=== PATIENT | male | born 1975 | race Caucasian/White ===

== ENCOUNTER 2020-11-08 09:43 | Day surgery (SDC) | payer MEDICARE, OTHER ==
[~2020-11-08] VITALS: Ht 170.2 cm; Wt 82.9 kg
[~2020-11-08 09:43] MED LIST: ALBU90OI INH; BUPR150ER; BUPR150ER PO; LAMO100 PO; PANT40 PO; QUET300 PO; RANI150; Seroquel300 MG PO
[2020-11-08] MEDS ORDERED: TESTOSTERONE ENANTHATE (10:04)
== END 2020-11-08 13:03 | disposition home or self-care (01) ==
LOC: ORSCSDS 09:43
PROVIDERS: Student in an Organized Health Care Education/Training Program
PROC: 0DBL8ZX Excision of Transverse Colon, Via Natural or Artificial Opening Endoscopic, Diagnostic (ICD-10-PCS; principal; 2020-11-08 11:00)
PROC: 0DB48ZX Excision of Esophagogastric Junction, Via Natural or Artificial Opening Endoscopic, Diagnostic (ICD-10-PCS; principal; 2020-11-08 11:00)
PROC: 0DB58ZX Excision of Esophagus, Via Natural or Artificial Opening Endoscopic, Diagnostic (ICD-10-PCS; principal; 2020-11-08 11:00)
PROC: 0DBN8ZX Excision of Sigmoid Colon, Via Natural or Artificial Opening Endoscopic, Diagnostic (ICD-10-PCS; principal; 2020-11-08 11:00)
DX: K21.9 Gastro-esophageal reflux disease without esophagitis (principal); K31.7 Polyp of stomach and duodenum; D13.0 Benign neoplasm of esophagus; Z12.11 Encounter for screening for malignant neoplasm of colon; D12.3 Benign neoplasm of transverse colon; D12.5 Benign neoplasm of sigmoid colon; F31.9 Bipolar disorder, unspecified; Z79.899 Other long term (current) drug therapy; J44.9 Chronic obstructive pulmonary disease, unspecified; F17.210 Nicotine dependence, cigarettes, uncomplicated
CPT/HCPCS: 88305; 88312; 88342; J2704; J7040; J7120

== ENCOUNTER → 2020-12-14 | Outpatient (CLI) | payer MEDICARE, OTHER ==
[~2020-12-14] MED LIST changes: +TESTOSTERONE ENANTHATE
== END | disposition home or self-care (01) ==
LOC: LAB 17:10 → LAB SHORT 17:10
DX: N39.9 Disorder of urinary system, unspecified (principal); R39.198 Other difficulties with micturition
CPT/HCPCS: 87086

== ENCOUNTER 2021-09-23 12:23 | Emergency (ER) | payer MEDICARE, OTHER ==
[~2021-09-23] VITALS: Ht 170.2 cm; Wt 83.9 kg
[2021-09-23] MEDS ORDERED: TAMSULOSIN HCL0.4 M1 PO (12:56)
== END 2021-09-23 13:30 | disposition home or self-care (01) ==
LOC: ER 12:23
DX: T83.031A Leakage of indwelling urethral catheter, initial encounter (principal); R33.9 Retention of urine, unspecified; Z79.899 Other long term (current) drug therapy
CPT/HCPCS: 99283

== ENCOUNTER 2022-11-13 13:07 | Day surgery (SDC) | payer MEDICARE, OTHER ==
[~2022-11-13] VITALS: Ht 172.7 cm; Wt 86.2 kg
[~2022-11-13 13:07] MED LIST changes: +TAMSULOSIN HCL0.4 M1 PO
[2022-11-13 15:06] VITALS: BP 121/79
== END 2022-11-13 15:03 | disposition home or self-care (01) ==
LOC: ORSCSDS 13:07
PROVIDERS: Internal Medicine Gastroenterology
PROC: 0DJ08ZZ Inspection of Upper Intestinal Tract, Via Natural or Artificial Opening Endoscopic (ICD-10-PCS; principal; 2022-11-13 14:30)
DX: K21.00 Gastro-esophageal reflux disease with esophagitis, without bleeding (principal); K31.7 Polyp of stomach and duodenum; F31.9 Bipolar disorder, unspecified; Z79.899 Other long term (current) drug therapy
CPT/HCPCS: J2704; J7120